=== PATIENT | male | born 1990 | race Caucasian/White ===

== ENCOUNTER 2024-07-04 11:52 | Emergency (ER) | payer OTHER ==
[~2024-07-04] VITALS: Ht 172.7 cm; Wt 74.0 kg
[2024-07-04 12:00] VITALS: BP 138/81; PULSE 71; RESP 20; TEMP 98.7; O2SAT 98
[2024-07-04] MEDS ORDERED: DIPH25CA83 MT (12:43)
[2024-07-04] MEDS: DIPHENHYDRAMINE 50MG CAPSULE PO ONE (12:45)
[2024-07-04] MEDS: FAMOTIDINE 20MG TABLET PO ONE (12:45)
[2024-07-04] MEDS: DIPHENHYDRAMINE 25MG CAPSULE PO SCH (13:15)
[2024-07-04] MEDS ORDERED: DIPHENHYDRAMINE 25MG CAPSULE PO ONE (13:15)
[2024-07-04] MEDS: FAMOTIDINE 20MG TABLET PO SCH (13:15)
== END 2024-07-04 13:59 | disposition home or self-care (01) ==
LOC: ER 11:52
DX: T78.40XA Allergy, unspecified, initial encounter (principal); L50.9 Urticaria, unspecified; X58.XXXA Exposure to other specified factors, initial encounter
CPT/HCPCS: 99282; Q0163